=== PATIENT | male | born 1970 | race Caucasian/White ===

== ENCOUNTER 2020-06-07 13:45 | Emergency (ER) | payer BC ==
[2020-06-07 13:55] VITALS: BP 151/71; PULSE 75; TEMP 98.8; BMI 27.1
[2020-06-07] MEDS ORDERED: ACETAMINOPHEN 500 MG TABLET (FP) PO ONE (14:46)
[2020-06-07] MEDS ORDERED: IBUPROFEN 400 MG TABLET (FP) PO ONE ×2 (14:46→14:52)
[2020-06-07] MEDS ORDERED: ACETAMINOPHEN 500 MG TABLET (FP) ONE (14:52)
== END 2020-06-07 15:35 | disposition home or self-care (01) ==
LOC: FER 13:45
DX: S93.602A Unspecified sprain of left foot, initial encounter (principal); X50.9XXA Other and unspecified overexertion or strenuous movements or postures, initial encounter
CPT/HCPCS: 73610-TC-LT-FY; 73630-TC-LT; 99283-25